=== PATIENT | male | born 1985 | race African-American/Black ===

== ENCOUNTER 2017-12-16 12:27 | Emergency (ER) | payer BC, SELFPAY | END 2017-12-16 13:25 | disposition home or self-care (01) | LOC: ERS 12:27 | DX: K02.9 Dental caries, unspecified; J45.909 Unspecified asthma, uncomplicated; K03.81 Cracked tooth; F17.210 Nicotine dependence, cigarettes, uncomplicated | CPT/HCPCS: 99282 ==

== ENCOUNTER 2018-03-16 21:07 | Emergency (ER) | payer SELFPAY ==
[2018-03-16 21:38] LABS: #Basophils 0.1 thou/uL (0.0-0.2); #Eosinphils 0.2 thou/uL (0.0-0.7); #Lymphocytes 3.1 thou/uL (1.20-3.40); #Neutrophils 7.6 thou/uL (1.40-6.50); %Basophils 0.9 % (0.0-1.0); %Eosinophils 1.5 % (0.0-10.0); %Lymphocytes 26.1 % (21.0-51.0); %Monocytes 7.9 % (0.0-10.0); %Neutrophils 63.6 % (42.0-75.0); Hemoglobin 14.6 g/dL (14.0-18.0); Mean Corpuscular HGB CONC 32.9 g/dL (32.0-36.0); Mean Corpuscular Hemoglobin 31.4 pg (27.0-31.0); Mean Corpuscular Volume 95.6 fL (78.0-98.0); Mean Platelet Volume 7.9 fL (7.4-10.4); Platelet Count 257 thou/uL (130-400); RBC Distribution Width 12.5 % (11.5-14.5); Red Blood Cell (RBC) Count 4.63 mill/uL (4.70-6.10)
--- NOTE | 2018-03-16 21:48 | RAD ---
TWO VIEW CHEST: 03/16/18 COMPARISON: 06/18/15 HISTORY: Shortness of breath for two weeks and cough. FINDINGS: Two views of the chest show normal sized cardiomediastinal silhouette. There is no evidence of consol idation, mass, or pleural effusion. The bones are unremarkable. IMPRESSION: No evidence of acute cardiopulmonary disease. POS: [facility]
[2018-03-16 21:58] LABS: ALT (SGPT) 15 U/L (8-55); AST (SGOT) 20 U/L (5-34); Albumin 3.4 g/dL (3.5-5.0); Alkaline Phosphatase 83 U/L (40-150); Anion Gap 10 mmol/L (10-20); BUN (Urea Nitrogen) 9 mg/dL (8.9-20.6); Bilirubin, Total 0.2 mg/dL (0.2-1.2); Calc. Creatinine Clearance 0 mL/min (70-130); Carbon Dioxide 29 mmol/L (22-29); Chloride 102 mmol/L (98-107); Estimated GFR-MDRD 64; Globulin 2.9 g/dL (2.4-3.5); Glucose 93 mg/dL (70-105); Potassium 3.3 mmol/L (3.5-5.1); Protein, Total 6.3 g/dL (6.0-8.3); Sodium 138 mmol/L (136-145)
[2018-03-16] MEDS ORDERED: predniSONE 20 MG TAB ONE (22:24)
== END 2018-03-16 22:57 | disposition home or self-care (01) ==
LOC: ERS 21:07
DX: J45.901 Unspecified asthma with (acute) exacerbation (principal); Z71.6 Tobacco abuse counseling; F17.210 Nicotine dependence, cigarettes, uncomplicated
CPT/HCPCS: 36415; 71046; 80053; 85025; 93005; 94640; 99406; J7506

== ENCOUNTER 2018-05-05 14:29 | Inpatient (IN) | payer SELFPAY ==
[2018-05-05] MEDS ORDERED: Albuterol Sulfate 2.5 mg/0.5 ml Neb ONE ×2 (14:38)
[2018-05-05] MEDS ORDERED: methylPREDNISolone Sod Succ/PF 125 MG/2 ML VIAL ONE (14:47)
[2018-05-05] MEDS ORDERED: Magnesium 2 GM/NS 0.9% 100 ML 2 GM in Premix Bag 1 BAG IVPB SCH (15:00)
[2018-05-05] MEDS ORDERED: Lorazepam 2 MG/ML VIAL ONE (15:05)
[2018-05-05 15:13] LABS: Hemoglobin 14.9 g/dL (14.0-18.0); Mean Corpuscular HGB CONC 33.8 g/dL (32.0-36.0); Mean Corpuscular Volume 94.8 fL (78.0-98.0); Platelet Count 274 thou/uL (130-400); RBC Distribution Width 12.5 % (11.5-14.5); Red Blood Cell (RBC) Count 4.67 mill/uL (4.70-6.10); White Blood Cell (WBC) Count 8.3 thou/uL (4.8-10.8)
[2018-05-05 15:26] LABS: Eosinophils 6 % (0-10); Lymphocytes 45 % (21-51); MDiff Complete? YES; Monocytes 4 % (0-10); Neutrophil 40 % (42-75); PLT Morphology Comment Appears Adequate; RBC Morphology Normal; Reactive Lymphocytes 4 % (0-10)
--- NOTE | 2018-05-05 15:28 | RAD ---
PORTABLE CHEST: 05/05/18 HISTORY: Dyspnea. The lung small are clear. Heart and mediastinum unremarkable. IMPRESSION: No acute abnormality. POS: [facility]
[2018-05-05 15:32] LABS: Actual Bicarbonate (HCO3a) 23.5 mEq/L (22-28); CO2 Tension 42.2 mmHg (35.0-45.0); O2 Tension (PaO2) 94.7 mmHg (80.0-100.0); pH, Arterial 7.36 (7.35-7.45)
[2018-05-05 15:32] LABS: ALT (SGPT) 15 U/L (8-55); AST (SGOT) 24 U/L (5-34); Albumin 4.2 g/dL (3.5-5.0); Alkaline Phosphatase 95 U/L (40-150); Anion Gap 13 mmol/L (10-20); BUN (Urea Nitrogen) 9 mg/dL (8.9-20.6); Bilirubin, Total 1.4 mg/dL (0.2-1.2); Calc. Creatinine Clearance 0 mL/min (70-130); Calcium 9.7 mg/dL (7.8-10.44); Carbon Dioxide 21 mmol/L (22-29); Chloride 108 mmol/L (98-107); Estimated GFR-MDRD 78; Globulin 2.9 g/dL (2.4-3.5); Glucose 82 mg/dL (70-105); Potassium 4.1 mmol/L (3.5-5.1); Protein, Total 7.1 g/dL (6.0-8.3); Sodium 138 mmol/L (136-145)
[2018-05-05 15:33] LABS: Base Excess (BEa) -1.8 mEq/L (-2.0 to +3.0); Carboxyhemoglobin (COHb) 2.2 gm% (0.0-3.0); Potassium - ABG Lab 3.9 mmol/L (3.70-5.30)
[2018-05-05 15:34] LABS: Analyzer IN Cardio ER; Calcium, Ionized 1.2 mmol/L (1.12-1.30); Puncture Site RR
[2018-05-05] MEDS ORDERED: HYDROcodone/Acetaminophen 5/325 mg Tablet PO PRN (17:21)
[2018-05-05] MEDS ORDERED: Acetaminophen 325 MG TAB PO PRN (17:21)
[2018-05-05] MEDS ORDERED: Guaifenesin DM 100-10/5 ML UDCUP PO PRN (17:21)
[2018-05-05] MEDS ORDERED: Albuterol Sulfate 2.5 mg/3 ml Neb NEB PRN (17:24)
--- NOTE | 2018-05-05 17:54 | HP ---
DATE OF ADMISSION: 05/05/2018 CHIEF COMPLAINT: Shortness of breath. 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 According to him, the patient was in his usual st ate of health at work wherein he developed sudden onset of shortness of breath as he was exposed to a lot of dust and he immediately went to ER for further evaluation and the patient presented to the ER , was acutely short of breath and was immediately started on BiPAP. He had initial ABGs, had a pO2 o f 94 per hour, but this was on BiPAP. The patient received a 2-3 nebulizer treatments with no relief and was given 125 mg of Solu-Medrol. The patient still continued to be very tight in his chest. Bi PAP was continued, but the patient was able to talk and was alert and oriented. He had a previous hi story of similar asthma attacks and is very noncompliant and is a known smoker. The patient is on montelukast at home and also chronic prednisone, but he is also on budesonide inhal er. He has previous similar exacerbations in the past. PAST MEDICAL HISTORY: Chronic asthma. PAST SURGICAL HISTORY: None. SOCIAL HISTORY: The patient is a nonsmoker. No history of alcohol, no history of illicit drug use. 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 ALLERGIES: No known drug allergies. MEDICATIONS: 1. He is on Albuterol inhaler. 2. Budesonide inhaler. 3. Montelukast 10 mg and also on prednisolone 20 mg daily. REVIEW OF SYSTEMS: All 12 systems are reviewed with the patient thoroughly and found to be negative at this time. Systems reviewed are HEENT, CVS, FLAT GRINDER OPERATOR, respiratory, GI, , all systems are reviewed an d found to be negative. The following complete review of systems was negative, unless otherwise ment ioned in the HPI or below: Constitutional: Weight loss or gain, sense of well-being, ability to con duct usual activities, exercise tolerance. Skin/Breast: Rash, itching, changes in hair growth or lo ss, nail changes, breast lumps, tenderness, swelling, nipple discharge. Eyes: Vision, double vision , tearing, blind spots, pain. ENT/Mouth: Headaches (location, time of onset, duration, precipitatin g factors), vertigo, lightheadedness, injury. Vision, double vision, tearing, blind spots, pain, nose bleeding, colds, obstruction, discharge, dental difficulties, gingival bleeding, dentures, neck stif fness, pain, tenderness, masses in thyroid or other areas. Cardiovascular: Precordial pain, substern al distress, palpitations, syncope, dyspnea on exertion, orthopnea, nocturnal paroxysmal dyspnea, abdoulaye ma, cyanosis, hypertension, heart murmurs, varicosities, phlebitis, claudication. Respiratory: Pain , shortness of breath, wheezing, stridor, cough, hemoptysis, fever or night sweats. Gastrointestinal : Poor appetite, dysphagia, indigestion, abdominal pain, heartburn, eructation, nausea, vomiting, he matemesis, jaundice, constipation, or diarrhea, abnormal stools (aldo-colored, tarry, bloody, greasy, foul smelling), flatulence, hemorrhoids, recent changes in bowel habits. Genitourinary: Urgency, f requency, dysuria, nocturia, hematuria, polyuria, oliguria, unusual (or change in) color of urine, st ones, hesitancy, change in size of stream, dribbling, acute retention or incontinence, libido, potenc y. Musculoskeletal: Pain, swelling, redness or heat of muscles or joints, limitation, of motion, mu scular weakness, atrophy, cramps. Neurologic/Psychiatric: Convulsions, paralyses, tremor, incoordin ation, parasthesias, difficulties with memory of speech, sensory or motor disturbances, or muscular c oordination (ataxia, tremor), emotional problems, anxiety, depression, previous psychiatric care, unu sual perceptions, hallucinations. Allergy/Immunologic: Skin rash, anemia, bleeding tendency, polydi psia, polyuria, intolerance to heat or cold. PHYSICAL EXAMINATION: VITAL SIGNS: Blood pressures are 130/88, heart rate is 98, respiratory rate is 24, saturation is 98% on 30% FiO2 on BiPAP. HEENT: Atraumatic, normocephalic. PERRLA. Extraocular muscles were intact. Oral mucosa pink and m oist. CARDIOVASCULAR: S1, S2 normal. No murmurs, rubs or gallops. LUNGS: Bilateral air entry was reduced with increased wheezing and absolutely very low air entry was noted. He has use of accessory muscles of respiration, currently on the BiPAP. ABDOMEN: Soft, nontender. No guarding or rebound tenderness. Bowel sounds normal. MUSCULOSKELETAL: No calf tenderness. No pedal edema. No joint tenderness, no joint swelling. SKIN: No cyanosis, no erythema, no rash, no pallor. NEUROLOGIC: Cranial nerve examination II-XII intact. No focal deficits were noted. LABORATORY DATA: Sodium is 130, potassium 4.1, chloride is 108. BUN is 9, creatinine 1.29. His blood gases: The pH was 7.36, pCO2 of 42.2, pO2 was 94.7 and A gradient was 137. Chest x-ray was also unremarkable. ASSESSMENT AND PLAN: 1. Acute asthma exacerbation. 2. Active smoker. PLAN: 1. Plan is to start the patient on IV Solu-Medrol 80 mg q.6 hours and continue on the BiPAP until cu rrent settings as the patient is pretty stable at this time and is able to talk in sentences. We pete l consult Pulmonary at this time and admit the patient to the C. We will continue the DuoNebs q.4 hours and albuterol nebulizer treatments every 2 hours and we will repeat the ABG as the patient's re spiratory rate is getting worse and is needing longer BiPAP. 2. The patient is an active smoker, counseled the patient to quit smoking. I spent almost 20 minute s with the patient and will do a nicotine patch at this time. 3. Deep venous thrombosis prophylaxis, Lovenox 40 mg subcu daily. I spent 75 minutes with this patient, of this one hour is a critical care time.
[2018-05-05] MEDS ORDERED: methylPREDNISolone Sod Succ/PF 125 MG/2 ML VIAL IVP SCH (18:00)
[2018-05-05 18:24] VITALS: BMI 20.2
[2018-05-05] MEDS: Montelukast Sodium 10 mg Tablet PO SCH (21:51)
[2018-05-05] MEDS: Famotidine 20 MG TAB PO SCH (21:52)
[2018-05-05] MEDS: Nicotine 21 MG PATCH TD SCH (21:52)
[2018-05-06 05:04] LABS: Anion Gap 11 mmol/L (10-20); BUN (Urea Nitrogen) 16 mg/dL (8.9-20.6); Calc. Creatinine Clearance 60 mL/min (70-130); Calcium 9.7 mg/dL (7.8-10.44); Carbon Dioxide 23 mmol/L (22-29); Chloride 106 mmol/L (98-107); Estimated GFR-MDRD 77; Glucose 173 mg/dL (70-105); Sodium 136 mmol/L (136-145)
[2018-05-06 05:44] LABS: Hemoglobin 14.8 g/dL (14.0-18.0); Mean Corpuscular HGB CONC 33.4 g/dL (32.0-36.0); Mean Corpuscular Hemoglobin 31.6 pg (27.0-31.0); Mean Corpuscular Volume 94.8 fL (78.0-98.0); Mean Platelet Volume 8.5 fL (7.4-10.4); Platelet Count 274 thou/uL (130-400); RBC Distribution Width 12.6 % (11.5-14.5); Red Blood Cell (RBC) Count 4.69 mill/uL (4.70-6.10); White Blood Cell (WBC) Count 8.8 thou/uL (4.8-10.8)
[2018-05-06 05:49] LABS: Band 8 % (5-11); Lymphocytes 14 % (21-51); MDiff Complete? YES; Monocytes 3 % (0-10); Neutrophil 75 % (42-75); PLT Morphology Comment Appears Adequate; RBC Morphology Normal
[2018-05-06] MEDS: Enoxaparin Sodium 40 MG/0.4 ML SYRINGE SC SCH (09:16)
[2018-05-06] MEDS: Famotidine 20 MG TAB PO SCH ×2 (09:16→21:48)
--- NOTE | 2018-05-06 14:07 | CON ---
DATE OF CONSULTATION: 05/06/2018 Kana Benítez is a 32-year-old gentleman with no primary care physician presented with asthma exacer bation last night, coughing, wheezing, unresponsive to usual home medication. He has been in our ER here many times. In fact, he was here not long ago with similar symptoms with a diagnosis of pneumonia. He smokes keyon f pack a day since age 18. No history of TB. He said his first asthma attack was when he was 31 yea rs of age. 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 PAST MEDICAL HISTORY: Asthma plus pneumonia. PAST SURGICAL HISTORY: None. CHRONIC MEDICATION. Inhaler. TOBACCO: . ALCOHOL: None. DRUGS: Apparently none. MEDICATIONS: Apparently, he has an albuterol inhaler at home. REVIEW OF SYSTEMS: Otherwise, 10-point negative. PHYSICAL EXAMINATION: VITAL SIGNS: Blood pressure is 105/50, sats on room air, respiration 16, temperature 97, pulse 76. CHEST: Reveal minimal wheezing. CARDIAC: Normal S1, S2, no gallops. ABDOMEN: No masses. LABORATORY DATA: White count is normal. Chemistry profile is normal. Creatinine is 1.30. IMPRESSION: Asthma exacerbation, tobacco abuse, mild azotemia. An alpha-1 antiantitrypsin level is being ordered. Smoking. He needs a scheduled inhaled cortisone inhaler, one was started, Dulera 2 puffs twice a day , p.o. prednisone, may be discharged in the next 24-48 hours. Consultation note, 70 minutes, 50% spent in direct patient care.
--- NOTE | 2018-05-06 14:56 | PDOC.PN ---
- Subjective Encounter Start Date: 05/06/18 Encounter Start Time: 12:00 Luis is seen today, alert and oriented. No other Concern snoted. He is breathing much better now, continue to wheeze and cough. - Objective Resuscitation Status: Resuscitation Status FULL:Full Resuscitation MAR Reviewed: Yes Vital Signs & Weight: Vital Signs (12 hours) Temp Pulse Resp BP Pulse Ox 05/06/18 14:37 76 16 94 L 05/06/18 13:57 97.7 F 85 16 110/66 99 05/06/18 12:08 99 05/06/18 10:53 84 20 05/06/18 08:00 97.9 F 96 16 97 05/06/18 07:00 97.9 F 96 16 105/55 L 98 05/06/18 06:52 75 24 H 100 05/06/18 04:00 97.6 F 90 18 104/52 L 97 Weight Weight 114 lb I&O: 05/05/18 05/06/18 05/07/18 06:59 06:59 06:59 Intake Total 828 Balance 828 Result Diagrams: 05/06/18 04:27 05/06/18 04:27 Radiology Reviewed by me: Yes EKG Reviewed by me: Yes Phys Exam - Physical Examination HEENT: PERRLA, moist MMs Neck: no nodes, no JVD Respiratory: no rales, wheezing present Cardiovascular: RRR, no significant murmur Gastrointestinal: soft, non-tender Musculoskeletal: no edema, pulses present Neurological: non-focal, normal sensation Lymphatic: no nodes Psychiatric: normal affect, A&O x 3 Dx/Plan (1) Acute respiratory failure with hypoxia Code(s): J96.01 - ACUTE RESPIRATORY FAILURE WITH HYPOXIA Status: Resolved Comment: pt on RA, will move him to floors today. (2) Allergic bronchitis with acute exacerbation Code(s): J45.901 - UNSPECIFIED ASTHMA WITH (ACUTE) EXACERBATION Status: Acute Comment: PT likely has allergy to dust, wi=chi is triggering his asthma from work place, advised to apply face mask at work, continue IV steroids and Nebs now, monitor closley if remains stbale can by dischagred in [place]. (3) Smoker, current status unknown Code(s): F17.200 - NICOTINE DEPENDENCE, UNSPECIFIED, UNCOMPLICATED Status: Acute Comment: councilled to quit, also asked pts to quit as he is exposed to passive smoking. - Plan cont current plan of care, plan discussed w/ family, PT/OT, social welfare administrator, respiratory therapy, incentive spirometry, DVT proph w/lovenox * . Review of Systems - Review of Systems Eyes: negative: Pain, Vision Change, Conjunctivae Inflammation, Eyelid Inflammation, Redness, Other ENT: negative: Ear Pain, Ear Discharge, Nose Pain, Nose Discharge, Nose Congestion, Mouth Pain, Mouth Swelling, Throat Pain, Throat Swelling, Other Respiratory: Cough, Shortness of Breath, Wheezing Cardiovascular: negative: chest pain, palpitations, orthopnea, paroxysmal nocturnal dyspnea, edema, light headedness, other Gastrointestinal: negative: Nausea, Vomiting, Abdominal Pain, Diarrhea, Constipation, Melena, Hematochezia, Other Genitourinary: negative: Dysuria, Frequency, Incontinence, Hematuria, Retention , Other Musculoskeletal: negative: Neck Pain, Shoulder Pain, Arm Pain, Back Pain, Hand Pain, Leg Pain, Foot Pain, Other Skin: negative: Rash, Lesions, Dev, Bruising, Other - Medications/Allergies Allergies/Adverse Reactions: Allergies Allergy/AdvReac Type Severity Reaction Status Date / Time No Known Allergies Allergy Unverified 05/26/16 07:38 Medications: Current Medications Acetaminophen (Tylenol) 650 mg PO Q4H PRN PRN Reason: Headache/Fever or Pain Hydrocodone Bitart/Acetaminophen (Powell 5/325) 1 tab PO Q4H PRN PRN Reason: Moderate Pain (4-6) Last Admin: 05/05/18 21:51 Dose: 1 tab Albuterol Sulfate (Ventolin) 2.5 mg NEB Q2H PRN PRN Reason: Wheezing Albuterol/Ipratropium (Duoneb) 3 ml NEB [id number] [facility] Last Admin: 05/06/18 14:37 Dose: 3 ml Enoxaparin Sodium (Lovenox) 40 mg SC 0900 [facility] Last Admin: 05/06/18 09:16 Dose: 40 mg Famotidine (Pepcid) 20 mg PO BID [facility] Last Admin: 05/06/18 09:16 Dose: 20 mg Guaifenesin/Dextromethorphan (Robitussin Dm) 15 ml PO Q4H PRN PRN Reason: Cough Mometasone Furoate/Formoterol Fumar (Dulera 200 Mcg/5 Mcg Inhaler) 2 puff INH BID-RT [facility] Montelukast Sodium (Singulair) 10 mg PO QPM [facility] Last Admin: 05/05/18 21:51 Dose: 10 mg Nicotine (Nicoderm Patch) 21 mg TD Q24HR [facility] Last Admin: 05/05/18 21:52 Dose: 21 mg Prednisone (Prednisone) 40 mg PO [facility]
[2018-05-06] MEDS: Mometasone/Formoterol 120 PUFF INHALER INH SCH (18:33)
[2018-05-06] MEDS: Nicotine 21 MG PATCH TD SCH (21:48)
[2018-05-06] MEDS: Montelukast Sodium 10 mg Tablet PO SCH (21:48)
[2018-05-07] MEDS: Mometasone/Formoterol 120 PUFF INHALER INH SCH (06:27)
[2018-05-07 07:08] VITALS: BP 110/59; TEMP 98.8
[2018-05-07] MEDS ORDERED: predniSONE 20 MG TAB PO SCH (08:00)
--- NOTE | 2018-05-07 08:18 | PRG ---
DATE OF SERVICE: 05/07/2018 This morning, he is better, he is less short of breath, less cough. PHYSICAL EXAMINATION: VITAL SIGNS: Sats are 96 on room air, respiration 16, temperature 98, pulse 80, blood pressure 110/5 9. No shortness of breath, coughing or wheezing. CHEST: Decreased breath sounds, no wheezing. CARDIAC: Normal S1-S2. No gallops. ABDOMEN: Soft. No masses. IMPRESSION: Bronchial asthma exacerbation, improved. PLAN: He can be discharged home on Dulera, a tapering dose of prednisone, a rescue inhaler. I will see as needed.
[2018-05-07] MEDS: Famotidine 20 MG TAB PO SCH (08:39)
[2018-05-07] MEDS: Enoxaparin Sodium 40 MG/0.4 ML SYRINGE SC SCH (08:39)
--- NOTE | 2018-05-08 04:59 | DIS ---
DATE OF ADMISSION: 05/05/2018 DATE OF DISCHARGE: 05/07/2018 PRIMARY CARE PHYSICIAN: None. Patient is instructed to follow up with [facility]. DISCHARGE DIAGNOSES: 1. Asthma exacerbation. 2. History of ongoing tobacco abuse. DISCHARGE MEDICATIONS: 1. Medrol Dosepak. 2. Dulera 100/5 two puffs b.i.d., albuterol inhaler as needed. INHOUSE CONSULTATION: Pulmonary Medicine. HISTORY OF PRESENT ILLNESS: Mr. Benítez is a 32-year-old male with known history of asthma and tobac co abuse who presented to the emergency room with complaints of worsening shortness of breath. He re ported being exposed to a lot of dust. Upon presentation, his initial ABG showed pO2 of 94. He was actually started on BiPAP in the emergency room upon presentation and was given nebulizer and Solu-Me drol. He was admitted with a presumptive diagnosis of acute asthma exacerbation. Pulmonary Medicine was consulted. Please see admission history and physical for further details. HOSPITAL COURSE: The patient was eventually weaned off of BiPAP and was moved out of the CCU to [facility]. He was evaluated by Pulmonary Medicine and eventually, IV steroids were tapered to oral st eroids. This morning on my evaluation, he is back to his baseline and has noticed shortness of breat h on room air, hemodynamically stable and has been cleared by Pulmonary Medicine for discharge. The patient is uninsured and have requested case management to help with his home medication list. M edication assistance was provided for the patient. He was extensively counseled about tobacco abstin ence and primary care physician followup. He is given information to follow up at [facility] for now. He verbalized understanding. PHYSICAL EXAMINATION: VITAL SIGNS: This morning prior to discharge, vital signs, saturating 98% on room air, blood pressur e 110/59. CHEST: Clear to auscultation bilaterally. Rate and rhythm is regular. All questions were answered. Discharge plan was discussed with the patient who verbalized understand ing. DISCHARGE LABS: Alpha 1 antitrypsin 138.
== END 2018-05-07 17:24 | disposition home or self-care (01) | DRG 189 ==
LOC: ERS 14:29 → IMCU/EMU 16:50 → T4-A 05-06 14:03
PROVIDERS: ADMIT Family Medicine; ATTEND Family Medicine
DX: J96.01 Acute respiratory failure with hypoxia (principal); J45.901 Unspecified asthma with (acute) exacerbation; F17.210 Nicotine dependence, cigarettes, uncomplicated; Z87.01 Personal history of pneumonia (recurrent); R79.89 Other specified abnormal findings of blood chemistry
CPT/HCPCS: 36415; 71045; 80048; 80053; 82103; 82805; 83605; 85025; 87040; 90471; 90732; 93005; 94640; 94644; 94660; 94760; G0009; J1650; J2060; J2920; J2930; J3475; J7506; J7611; J7620

== ENCOUNTER 2018-08-14 20:10 | Emergency (ER) | payer BC, SELFPAY | END 2018-08-14 20:57 | disposition home or self-care (01) | LOC: ERS 20:10 | DX: H00.16 Chalazion left eye, unspecified eyelid (principal); J45.909 Unspecified asthma, uncomplicated; F17.210 Nicotine dependence, cigarettes, uncomplicated; Z79.899 Other long term (current) drug therapy | CPT/HCPCS: 99283 ==

== ENCOUNTER → 2019-02-27 | Emergency (ER) | payer BC | LOC: ERS 21:03 | DX: J45.909 Unspecified asthma, uncomplicated (principal) ==

== ENCOUNTER 2019-06-23 03:38 | Inpatient (IN) | payer SELFPAY ==
[2019-06-23] MEDS ORDERED: Ketamine 50 MG/ML (10ML VIAL) ONE (03:45)
[2019-06-23] MEDS ORDERED: Albuterol Sulfate 2.5 mg/3 ml Neb ONE ×2 (03:49)
[2019-06-23 04:01] LABS: Hemoglobin 16.7 g/dL (14.0-18.0); Mean Corpuscular HGB CONC 30.4 g/dL (32.0-36.0); Mean Corpuscular Hemoglobin 31.4 pg (27.0-31.0); Mean Platelet Volume 9.6 fL (7.4-10.4); Platelet Count 208 thou/uL (130-400); RBC Distribution Width 12.5 % (11.5-14.5); Red Blood Cell (RBC) Count 5.31 mill/uL (4.70-6.10); White Blood Cell (WBC) Count 14.9 thou/uL (4.8-10.8)
[2019-06-23 04:20] LABS: ALT (SGPT) 20 U/L (8-55); AST (SGOT) 36 U/L (5-34); Acetaminophen Less than 6.0 mcg/mL (10.0-30.0); Albumin 4.7 g/dL (3.5-5.0); Alcohol Less than 10 mg/dL (Less than 10); Alkaline Phosphatase 109 U/L (40-110); Anion Gap 33 mmol/L (10-20); BUN (Urea Nitrogen) 10 mg/dL (8.9-20.6); Bilirubin, Total 0.6 mg/dL (0.2-1.2); CK (CPK) 378 U/L (30-200); Calc. Creatinine Clearance 0 mL/min (70-130); Calcium 11.5 mg/dL (7.8-10.44); Carbon Dioxide 17 mmol/L (22-29); Chloride 111 mmol/L (98-107); Estimated GFR-MDRD 51; Globulin 2.8 g/dL (2.4-3.5); Glucose 146 mg/dL (70-105); Protein, Total 7.5 g/dL (6.0-8.3); Salicylate Less than 8.0 mg/dL (15.0-30.0); Sodium 155 mmol/L (136-145)
[2019-06-23] MEDS ORDERED: Rocuronium Bromide 10 MG/ML (10ML VIAL) ONE (04:31)
[2019-06-23 04:42] LABS: Eosinophils 7 % (0-10); Lymphocytes 63 % (21-51); MDiff Complete? YES; Monocytes 7 % (0-10); Neutrophil 22 % (42-75); Platelet Clumps SLIGHT; Reactive Lymphocytes 1 % (0-10)
[2019-06-23] MEDS ORDERED: Propofol 1,000 MG/100 ML VIAL IV ONE (04:42)
[2019-06-23 05:07] LABS: Actual Bicarbonate (HCO3a) 9.4 mEq/L (22-28); Analyzer IN Cardio ER; CO2 Tension 33.8 mmHg (35.0-45.0); Calcium, Ionized 1.11 mmol/L (1.12-1.30); Carboxyhemoglobin (COHb) 0.9 gm% (0.0-3.0); Hemoglobin (Hb) 13.4 g/dL (14.0-18.0); O2 Tension (PaO2) 449.9 mmHg (80.0-100.0); Potassium - ABG Lab 3.43 mmol/L (3.70-5.30)
[2019-06-23 05:10] LABS: Medtox Reader # READER 4; THC/Cannabinoid Screen Detected (NotDetected)
[2019-06-23 05:11] LABS: Amphetamine Detected (NotDetected); Barbiturates Screen Not Detected (NotDetected); Benzodiazepine Screen Not Detected (NotDetected); Cocaine Metabolite Screen Not Detected (NotDetected); Medtox Control Line Valid? VALID (VALID); Methadone Not Detected (NotDetected); Methamphetamine Detected (NotDetected); Opiate Screen Not Detected (NotDetected); Oxycodone Screen Not Detected (NotDetected); Phencyclidine (PCP) Not Detected (NotDetected); Tricyclic Screen Not Detected (NotDetected)
[2019-06-23] MEDS ORDERED: Acetaminophen 650 MG Suppository PR PRN (05:15)
[2019-06-23 05:16] LABS: Puncture Site LBA; pH, Arterial 7.06 (7.35-7.45)
[2019-06-23] MEDS ORDERED: Dextrose 5 %-0.45 % NaCl 1,000 ML IV SCH (05:30)
--- NOTE | 2019-06-23 05:32 | PDOC.EVN ---
Event Note - Event Note Event Note: [id number] HP
--- NOTE | 2019-06-23 06:09 | HP ---
CHIEF COMPLAINT: Shortness of breath. HISTORY OF PRESENT ILLNESS: Mr. Benítez is a 33-year-old male with unknown past medical history, was brought to the emergency room by EMS for shortness of breath. EMS reports the patient was sitting on his porch, when he began to have shortness of breath. EMS reports the patient told them he was out of his albuterol for three days and had expiratory wheezing? The patient was very combative upon arrival to the emergency room and need to be sedated. As per ER physicians, the patient started having more respiratory distress, was using his accessory muscles, the patient was intubated and mechanically ventilated. No further history can be obtained at this time. Workup in the emergency room, patient's labs; the patient was found to be hypernatremic with a sodium of 155, potassium is 6.0, creatinine elevated at 1.85. Anion gap is 33. Glucose 146. Total CK is 378. WBC count is 14.9, hemoglobin is 16.7, and platelets 208. Urine drug screen is positive for THC and cannabinoids, positive for methamphetamine, positive for amphetamine. PAST MEDICAL HISTORY: Unknown. ALLERGIES: UNKNOWN. SOCIAL HISTORY: Unknown. HOME MEDICATIONS: Unknown. FAMILY HISTORY: Unknown. REVIEW OF SYSTEMS: Cannot be obtained. The patient is intubated, mechanically ventilated, and sedated. PHYSICAL EXAMINATION: GENERAL: The patient is intubated, mechanically ventilated, and sedated. VITAL SIGNS: Blood pressure 115/59, temperature 97.8, heart rate is 110, respiratory rate is 15 on the vent, and oxygen saturation is 100% on the ventilator. HEAD AND NECK: Normocephalic. Neck is supple. CHEST: Fair bilateral air entry. HEART: S1, S2. Regular, tachycardic. ABDOMEN: Soft. Bowel sounds present. NEURO: Intubated, sedated. PSYCH: Intubated, sedated, unable to assess. EXTREMITIES: No clubbing or cyanosis. LABORATORY DATA: As mentioned above in the history of present illness. ASSESSMENT: 1. Acute respiratory failure. 2. Metabolic/toxic encephalopathy. 3. Polysubstance abuse/intoxication. 4. Acute renal failure. 5. Leukocytosis. 6. Acute hypernatremia. 7. Hyperkalemia. 8. Dehydration. 9. Elevated anion gap. PLAN: 1. Admit to the ICU. 2. Continue full ventilator support. 3. IV fluid hydration. 4. Monitor kidney function and urine output. 5. Monitor and correct electrolytes. 6. Consult Pulmonary in a.m. for vent management and critical care management. 7. Sedation analgesia. 8. DVT prophylaxis. Low molecular weight heparin. 9. GI prophylaxis. 10. Expected length of stay, 3 midnights or more. Job ID: [id number]
[2019-06-23] MEDS ORDERED: Lorazepam 2 MG/ML VIAL SLOW IVP PRN (06:10)
[2019-06-23] MEDS ORDERED: Morphine 2 MG/ML SYRINGE SLOW IVP PRN (06:10)
[2019-06-23] MEDS ORDERED: Propofol BOLUS 1,000 MG/100 ML VIAL IV PRN (06:10)
[2019-06-23] MEDS ORDERED: fentaNYL Citrate/PF 2,000 MCG in Sodium Chloride 0.9% 60 ML IV SCH (06:10)
[2019-06-23] MEDS ORDERED: DISCONTINUE PREVIOUS NARCOTIC PAIN MEDICATIONS AND BENZODIAZEPINES FS SCH (06:10)
[2019-06-23] MEDS ORDERED: Propofol 1,000 MG/100 ML VIAL IV PRN (06:10)
[2019-06-23] MEDS ORDERED: Fentanyl BOLUS 250 ML IVPB PRN (06:10)
[2019-06-23 06:29] LABS: Hemoglobin 14.1 g/dL (14.0-18.0); Mean Corpuscular HGB CONC 32.3 g/dL (32.0-36.0); Mean Corpuscular Hemoglobin 31.6 pg (27.0-31.0); Mean Corpuscular Volume 97.9 fL (78.0-98.0); Mean Platelet Volume 8.3 fL (7.4-10.4); Platelet Count 294 thou/uL (130-400); RBC Distribution Width 12.3 % (11.5-14.5); Red Blood Cell (RBC) Count 4.46 mill/uL (4.70-6.10); White Blood Cell (WBC) Count 16.1 thou/uL (4.8-10.8)
[2019-06-23 06:36] LABS: Band 7 % (5-11); Eosinophils 3 % (0-10); Lymphocytes 13 % (21-51); MDiff Complete? YES; Monocytes 2 % (0-10); Neutrophil 75 % (42-75)
[2019-06-23 06:40] LABS: Anion Gap 19 mmol/L (10-20); BUN (Urea Nitrogen) 11 mg/dL (8.9-20.6); Calc. Creatinine Clearance 0 mL/min (70-130); Carbon Dioxide 13 mmol/L (22-29); Chloride 111 mmol/L (98-107); Potassium 3.4 mmol/L (3.5-5.1); Sodium 140 mmol/L (136-145)
[2019-06-23 06:41] LABS: ALT (SGPT) 24 U/L (8-55); AST (SGOT) 56 U/L (5-34); Albumin 3.5 g/dL (3.5-5.0); Alkaline Phosphatase 99 U/L (40-110); Bilirubin, Total 0.3 mg/dL (0.2-1.2); Calcium 7.6 mg/dL (7.8-10.44); Estimated GFR-MDRD 62; Globulin 2.3 g/dL (2.4-3.5); Glucose 137 mg/dL (70-105); Protein, Total 5.8 g/dL (6.0-8.3)
[2019-06-23 06:46] VITALS: BMI 18.6
[2019-06-23 06:49] LABS: Actual Bicarbonate (HCO3a) 16.6 mEq/L (22-28); Base Excess (BEa) -9.4 mEq/L (-2.0 to +3.0); CO2 Tension 36.6 mmHg (35.0-45.0); Calcium, Ionized 1.12 mmol/L (1.12-1.30); Carboxyhemoglobin (COHb) 1.7 gm% (0.0-3.0); Hemoglobin (Hb) 14.9 g/dL (14.0-18.0); O2 Tension (PaO2) 72.4 mmHg (80.0-100.0); Potassium - ABG Lab 3.39 mmol/L (3.70-5.30); pH, Arterial 7.27 (7.35-7.45)
[2019-06-23] MEDS ORDERED: Bacteriostatic Water 30 ML VIAL FS PRN (06:50)
[2019-06-23 07:02] LABS: Puncture Site RRA
--- NOTE | 2019-06-23 07:42 | RAD ---
Chest one view HISTORY: Intubation. COMPARISON: Earlier exam on the same date. FINDINGS: Cardiac silhouette and pulmonary vasculature are unremarkable. Tip of endotracheal catheter overlies the trachea at the level of the clavicular heads. Proximal port of the nasogastric tube is at the level of the GE junction. Subtle hazy parenchymal opacity now projects over each upper lobe. Mediastinum is midline. No evidenc e of pneumothorax. IMPRESSION: Endotracheal catheter tip at the thoracic inlet. Nasogastric tube should probably be advanced 5-10 cm for better positioning. Developing subtle hazy parenchymal infiltrate within each upper lobe.
--- NOTE | 2019-06-23 07:50 | RAD ---
Chest one view HISTORY: Dyspnea. COMPARISON: 05 May 2018. FINDINGS: Cardiac silhouette and pulmonary vasculature are unremarkable. Lungs remain hyperinflated. Mediastinum is midline. No confluent airspace consolidation or evidence of thorax. telemetry monitor leads overlie the chest. IMPRESSION: Pulmonary hyperinflation. No active cardiopulmonary abnormalities are otherwise demonstra delma.
[2019-06-23] MEDS ORDERED: Ondansetron PF 4 MG/2 ML Vial ONE (08:27)
[2019-06-23] MEDS: Enoxaparin Sodium 30 MG/0.3 ML SYRINGE SC SCH (09:10)
[2019-06-23] MEDS: Famotidine/PF 20 mg/2ml Vial SLOW IVP SCH ×2 (09:10→21:20)
[2019-06-23] MEDS ORDERED: Ondansetron PF 4 MG/2 ML Vial SLOW IVP PRN (09:47)
--- NOTE | 2019-06-23 11:23 | CON ---
DATE OF CONSULTATION: 06/23/2019 SERVICE: Pulmonary Medicine. REASON FOR CONSULTATION: ICU patient. HISTORY OF PRESENT ILLNESS: The patient is a 33-year-old male with past medical history significant for asthma. He was in his usual state of health when he started having increasing difficulty with breathing. He presented to the emergency department and subsequently required intubation. He has been out of his albuterol for 3 days. He does not take any long-acting medications because of cost-related issues. Prior to this event occurring, he did not have any fevers, chills, cough, sputum production, nausea, or vomiting. He denies any sick contacts at this point. He ended up getting intubated. He had an obstructive lung profile immediately following intubation, which has slowly improved overnight. At this point, he is at the point where he can be safely extubated. PAST MEDICAL HISTORY: Asthma. PAST SURGICAL HISTORY: None. SOCIAL HISTORY: He is a lifelong nonsmoker. He denies any alcohol or illicit drugs. He is and has a child. He has no exposure to chemicals, dust, asbestos, or tuberculosis. ALLERGIES: NO KNOWN DRUG ALLERGIES. MEDICATIONS: List of his inpatient medications was reviewed. Multiple updates were made at this time. REVIEW OF SYSTEMS: General, head, ears, eyes, nose, throat, cardiovascular, respiratory, GI, , musculoskeletal, neurologic, and skin is negative except as mentioned in the HPI. PHYSICAL EXAMINATION: VITAL SIGNS: Afebrile; pulse 86; blood pressure 100/61; respirations 15; and saturation 100%, currently on 21% FiO2 and a PEEP of 5. GENERAL: The patient is intubated. He is off sedation currently and so he has a little bit of agitation. HEENT: Normocephalic and atraumatic. Sclerae are white. Conjunctivae pink. Oral mucosa is moist without lesions. LUNGS: Decent air entry. There is prolonged expiratory phase, but at this point I do not hear any wheezing or rhonchi. HEART: Normal rate and regular. ABDOMEN: Soft, nontender, and nondistended. Bowel sounds are positive. MUSCULOSKELETAL: No cyanosis or clubbing. No pitting in the bilateral lower extremities. NEUROLOGIC: Grossly nonfocal. LABORATORY DATA: WBC 16.1 and up trending, hemoglobin 14.1, and platelets 294,000. Lymphocyte count is 13% on top of 75% neutrophils. A pH 7.27, pCO2 of 36, pO2 of 72 while on 21% FiO2. Potassium 3.4. Creatinine 1.56 and gently downtrending. Liver function studies are otherwise unremarkable. CK 378. Troponin and alpha-1 antitrypsin levels were previously unremarkable. Urine drug screen is positive for amphetamines, benzodiazepine, and cannabinoids. IMAGING STUDIES: Chest x-ray demonstrates bilateral hazy infiltrates in the upper lobes. There is an endotracheal tube roughly 5 to 6 cm above the level of the jaxson. Diaphragm flattened slightly, consistent with hyperexpansion. No significant effusions or overt consolidating changes are present. ASSESSMENT: 1. Acute hypoxic respiratory failure, resolved. 2. Status asthmaticus, improving. 3. Medical noncompliance. DISCUSSION AND PLAN: The patient will be placed on a spontaneous breathing trial. If he meets criteria, extubation will be considered. I will give him a dose of potassium. We will deescalate his antibiotics and steroids over to p.o. medications. If he meets criteria for extubation, he will likely be stable for transition out of the ICU to the medical unit. Pulmonary/Critical Care will continue to follow along, though Dr. Panda has established a relationship with Mr. Benítez and will assume coverage in the morning. We will need to focus on getting this patient good medications in the outpatient setting. CRITICAL CARE TIME: 30 minutes. Job ID: [id number]
[2019-06-23] MEDS ORDERED: methylPREDNISolone Sod Succ 40 MG VIAL IVP SCH (12:00)
[2019-06-23] MEDS: Nicotine 14 MG PATCH TD SCH (12:14)
--- NOTE | 2019-06-23 12:21 | PRG ---
DATE OF SERVICE: 06/23/2019 SUBJECTIVE: The patient is seen and examined at the bedside. He is intubated, but he is able to communicate with me. He is not in any pain. He is orally intubated. OBJECTIVE: VITAL SIGNS: Blood pressure is 95/60, pulse is 79, respiratory rate is 20, and O2 saturation is 100% on a ventilator. HEENT: His pupils are responding to light properly. Sclerae are nonicteric. Conjunctivae, pinkish. LUNGS: Breath sounds somewhat diminished at both bases. No wheezing. No rales. HEART: S1 and S2 normal. No S3. No S4. ABDOMEN: Soft, nontender, nondistended. Bowel sounds are present. EXTREMITIES: No clubbing, cyanosis, or edema. NEUROLOGICAL: He follows my commands. He moves his all 4 extremities. LABORATORY DATA: Labs showed white count of 16.1, hemoglobin of 14.1, hematocrit of 43.6, platelet count is 294,000. ABGs showed pH of 7.27, pO2 of 72.4, pCO2 of 36.6, base excess -9.4. Sodium of 140, potassium of 3.4, chloride of 111, CO2 of 13, BUN of 11, creatinine of 1.56, calcium of 7.6, globulin of 2.3, albumin of 3.5, total protein of 5.8. Drug urine screen positive for amphetamines, methamphetamines, and cannabinoids. IMPRESSION: 1. Status asthmaticus. 2. Acute respiratory failure. 3. Metabolic/toxic encephalopathy secondary to most likely substance abuse. 4. Polysubstance abuse/intoxication. 5. Acute renal failure, improving with intravenous fluids. 6. Dyselectrolytemia. 7. Dehydration. 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 Continue IV fluids. He is started on his own prednisone per Dr. Grace's recommendation. He will continue DuoNeb's, and we will talk about his illicit drug use when he is extubated. We will continue his close monitoring. Continue with a close lab work. Replace potassium and follow up on his kidney function. We will obtain the ultrasound on his kidneys, and we will start him on patch 14 mg daily since he smokes approximately 1 pack per day. Job ID: [id number]
--- NOTE | 2019-06-23 14:48 | ULT ---
Renal sonogram HISTORY: Renal failure. FINDINGS: Right kidney is 9.2 cm length and the left is 9.4 cm. Each has a normal sonographic appeara nce with good color and spectral Doppler flow each has a normal sonographic appearance. No evidence of mass, stone, or hydronephrosis. Urinary bladder is well distended. Homogeneous speckled echogenic material is present throughout the urinary bladder lumen. IMPRESSION: No evidence of urinary tract obstruction. Normal appearance of the kidneys. Echogenic process (debris?) Throughout the urinary bladder. Recent instrumentation and administration of fluid? Urinary tract infection?
[2019-06-23] MEDS ORDERED: predniSONE 20 MG TAB PO SCH (21:00)
[2019-06-24 06:30] LABS: Hemoglobin 14.3 g/dL (14.0-18.0); Mean Corpuscular Hemoglobin 31.6 pg (27.0-31.0); Mean Corpuscular Volume 95.7 fL (78.0-98.0); Mean Platelet Volume 7.9 fL (7.4-10.4); Platelet Count 319 thou/uL (130-400); RBC Distribution Width 12.4 % (11.5-14.5); Red Blood Cell (RBC) Count 4.53 mill/uL (4.70-6.10); White Blood Cell (WBC) Count 13.7 thou/uL (4.8-10.8)
[2019-06-24 07:03] LABS: ALT (SGPT) 23 U/L (8-55); AST (SGOT) 45 U/L (5-34); Albumin 3.6 g/dL (3.5-5.0); Alkaline Phosphatase 76 U/L (40-110); Anion Gap 11 mmol/L (10-20); BUN (Urea Nitrogen) 11 mg/dL (8.9-20.6); Bilirubin, Total 0.6 mg/dL (0.2-1.2); Calc. Creatinine Clearance 49 mL/min (70-130); Carbon Dioxide 23 mmol/L (22-29); Chloride 112 mmol/L (98-107); Estimated GFR-MDRD 62; Globulin 2.4 g/dL (2.4-3.5); Glucose 114 mg/dL (70-105); Potassium 4.8 mmol/L (3.5-5.1); Sodium 141 mmol/L (136-145)
[2019-06-24 07:20] LABS: Band 1 % (5-11); Lymphocytes 11 % (21-51); MDiff Complete? YES; Monocytes 1 % (0-10); Neutrophil 86 % (42-75); RBC Morphology Normal; Reactive Lymphocytes 1 % (0-10)
[2019-06-24] MEDS ORDERED: predniSONE 20 MG TAB PO SCH (08:00)
[2019-06-24] MEDS: Enoxaparin Sodium 30 MG/0.3 ML SYRINGE SC SCH (08:32)
--- NOTE | 2019-06-24 08:48 | PRG ---
DATE OF SERVICE: 06/24/2019 SUBJECTIVE: Kana Benítez, this morning, is awake, alert, and responsive. He was extubated yesterday. OBJECTIVE: VITAL SIGNS: Temperature 98, pulse 80, respiratory rate 18, saturations are 98% on room air, and blood pressure 106/60. CHEST: No wheezing. CARDIAC: Normal S1 and S2. No gallops. ABDOMEN: No masses. ASSESSMENT: Chronic obstructive pulmonary disease asthma exacerbation. PLAN: He needs to be on inhaled steroids indefinitely. Can be transferred out of the ICU. Taper steroids over 2 weeks. Follow with primary care physician. Job ID: [id number]
[2019-06-24] MEDS ORDERED: Famotidine 20 MG TAB PO SCH (09:00)
[2019-06-24] MEDS: Nicotine 14 MG PATCH TD SCH (12:05)
[2019-06-24 12:08] VITALS: BP 112/67; TEMP 98
--- NOTE | 2019-06-24 13:54 | PRG ---
DATE OF SERVICE: 06/24/2019 SUBJECTIVE: Patient is seen and examined at bedside. He is extubated. He is feeling significantly better. OBJECTIVE: VITAL SIGNS: Blood pressure is 112/67, pulse is 87, respiratory rate is 16, temperature 98.0, O2 saturation is 97% on room air. HEENT: His head is atraumatic and normocephalic. Eyes are PERRLA. Sclerae are nonicteric. Oral mucosa is moist. NECK: Supple. LUNGS: Clear. HEART: S1, S2 normal. No S3. No S4. No murmur. ABDOMEN: Soft, nontender. Bowel sounds are present, no organomegaly. EXTREMITIES: No clubbing, cyanosis, or edema. NEUROLOGIC: He is alert and oriented x4. There is no any sensory or motor deficits. LABORATORY DATA: Labs showed white count of 13.7, hemoglobin of 14.3, hematocrit 43.4, platelet count is 319. Sodium of 141, potassium 4.8, chloride 112, CO2 of 23, BUN 11, creatinine 1.58, calcium 9.0, AST 45, ALT 23, alkaline phosphatase 76. IMPRESSION: 1. Status asthmaticus, resolved. 2. Acute respiratory failure, resolved, status post mechanical ventilation. 3. Metabolic/toxic encephalopathy secondary to most likely substance abuse. 4. Polysubstance abuse. 5. Intoxication. 6. Acute renal failure, improved with intravenous fluids. Renal ultrasound showed some distended urinary bladder with homogeneous speckled echogenic material throughout the urinary bladder lumen. There is no evidence of urinary tract obstruction and there are normal-appearing kidneys. PLAN: The patient is switched to oral prednisone and continue on DuoNebs every 6 hours along with inhaled steroids, Dulera 2 puffs twice a day and he will be transitioned to telemetry floor and most likely he can go home in the next 24 hours. Job ID: [id number]
[2019-06-24] MEDS ORDERED: Mometasone/Formoterol 120 PUFF INHALER INH SCH (18:30)
--- NOTE | 2019-06-25 22:27 | PQF ---
[employer] Winform Viewer BRANDY ROTHMAN ZBIGNIEW A MD [id number] CLINICAL DOCUMENTATION CLARIFICATION FORM: POST DISCHARGE Addendum to original discharge summary date: ____ Late entry note date: __ DATE: 06/25/19 ATTN: Bernabe Ibarra Please exercise your independent, professional judgment in responding to the clarification form. Clinical indicators are provided on the bottom of this form for your review Can you please further specify the etiology of Acute hypoxic respiratory failure based on the clinical indicators below? Please check appropriate box(s): [ x ] Polysubstance abuse (Cannabinoids, methamphetamine, amphetamine) [ ] Status asthmaticus [ ] Polysubstance intoxication (Cannabinoids, methamphetamine, amphetamine) [ ] Acute hypoxic respiratory failure unknown etiology [ ] Other diagnosis please specify [ ] Unable to determine In addition, please specify: Present on Admission (POA): [ x] Yes [ ] No [ ] Unable to determine For continuity of documentation, please document condition throughout progress notes and discharge summary. Thank You. CLINICAL INDICATORS - SIGNS / SYMPTOMS / LABS H&P p1 06/23 Dr. Benjamin - As per ER physician, the patient started having respiratory distress, was using his accessory muscles, the patient was intubated and mechanically ventilated H&P p1 06/23 Dr. Benjamin - The patient was very combative upon arrival to the emergency room and need to be sedated H&P p1 06/23 Dr. Benjamin - Urine drug screen is positive for THC and cannabinoids, positive for methamphetamine positive for amphetamine H&P p2 06/23 Dr. Benjamin - Polysubstance abuse/intoxication PN p1 06/24 Dr. Olivia - Acute Respiratory failure, resolved, status post mechanical ventilation PN p1 06/24 Dr. Olivia - Metabolic/ toxic encephalopathy secondary to most likely substance abuse PN p1 06/24 Dr. Olivia - polysubstance abuse PN p1 06/24 Dr. Olivia - status asthmaticus, resolved RISK FACTORS Asthma-H&P 06/23 Dr. Benjamin COPD-PN 06/24 Dr. Panda Polysubstance abuse- H&P p1 06/23 Dr. Benjamin TREATMENTS: Consult Dr. Grace Pulmonary Consult H&P 06/23 Dr. Benjamin Intubated and mechanically ventilated NOV 18 Ativan IV NOV 18 Methylprednisolone IV NOV 18- IV Fluids (This form is maintained as a part of the permanent medical record) 2014 [employer]. All Rights Reserved Julio de la [email or web address] [not provided] MTDD
== END 2019-06-24 16:05 | disposition home or self-care (01) | DRG 917 ==
LOC: ERS 03:38 → CCU 06:06
PROVIDERS: ADMIT Internal Medicine; ATTEND Internal Medicine
PROC: 5A1935Z Respiratory Ventilation, Less than 24 Consecutive Hours (ICD-10-PCS; principal; 2019-06-23)
PROC: 0BH17EZ Insertion of Endotracheal Airway into Trachea, Via Natural or Artificial Opening (ICD-10-PCS; 2019-06-23)
DX: T43.621A Poisoning by amphetamines, accidental (unintentional), initial encounter (principal); J96.01 Acute respiratory failure with hypoxia; G92 Toxic encephalopathy; J45.902 Unspecified asthma with status asthmaticus; N17.9 Acute kidney failure, unspecified; E87.0 Hyperosmolality and hypernatremia; T40.7X1A Poisoning by cannabis (derivatives), accidental (unintentional), initial encounter; E86.0 Dehydration; E87.5 Hyperkalemia; J44.9 Chronic obstructive pulmonary disease, unspecified; F12.129 Cannabis abuse with intoxication, unspecified; F12.188 Cannabis abuse with other cannabis-induced disorder; F15.129 Other stimulant abuse with intoxication, unspecified; F17.210 Nicotine dependence, cigarettes, uncomplicated; F15.188 Other stimulant abuse with other stimulant-induced disorder; Z91.14 Patient's other noncompliance with medication regimen
CPT/HCPCS: 31500; 36415; 51702; 71045; 76770; 80053; 80306; 80307; 82550; 82805; 84484; 85007; 85025; 85027; 93005; 94002; 94640; 94760; 96360; 96365; 96372; J1650; J2405; J2704; J7512; J7611; J7620; S0028

== ENCOUNTER 2019-12-28 01:40 | Inpatient (IN) | payer SELFPAY ==
[2019-12-28] MEDS ORDERED: Magnesium 2 GM/50 ML BAG (IN WATER) ONE (01:44)
[2019-12-28] MEDS ORDERED: EPINEPHrine 1 MG/ML AMP ONE (01:45)
[2019-12-28] MEDS ORDERED: predniSONE 20 MG TAB ONE (02:22)
[2019-12-28 03:02] LABS: Amphetamine Not Detected (NotDetected); Barbiturates Screen Not Detected (NotDetected); Benzodiazepine Screen Not Detected (NotDetected); Cocaine Metabolite Screen Not Detected (NotDetected); Medtox Control Line Valid? VALID (VALID); Medtox Reader # READER 1; Methadone Not Detected (NotDetected); Methamphetamine Not Detected (NotDetected); Opiate Screen Not Detected (NotDetected); Oxycodone Screen Not Detected (NotDetected); Phencyclidine (PCP) Not Detected (NotDetected); THC/Cannabinoid Screen Detected (NotDetected); Tricyclic Screen Not Detected (NotDetected)
[2019-12-28 03:05] LABS: #Basophils 0.1 thou/uL (0.0-0.2); #Eosinphils 1.1 thou/uL (0.0-0.7); #Monocytes 0.5 thou/uL (0.11-0.59); #Neutrophils 5.2 thou/uL (1.40-6.50); %Basophils 1.1 % (0.0-1.0); %Lymphocytes 30.4 % (21.0-51.0); %Monocytes 5.3 % (0.0-10.0); %Neutrophils 52.2 % (42.0-75.0); Hemoglobin 15.3 g/dL (14.0-18.0); Mean Corpuscular HGB CONC 32.5 g/dL (32.0-36.0); Mean Corpuscular Hemoglobin 32.2 pg (27.0-31.0); Mean Corpuscular Volume 98.9 fL (78.0-98.0); Platelet Count 167 thou/uL (130-400); RBC Distribution Width 12.3 % (11.5-14.5); Red Blood Cell (RBC) Count 4.75 mill/uL (4.70-6.10); White Blood Cell (WBC) Count 9.9 thou/uL (4.8-10.8)
--- NOTE | 2019-12-28 03:16 | PDOC.FPRHP ---
- History of Present Illness Chief Complaint: SOB History of Present Illness: 34yo male with pmh of severe asthma presents with SOB worse over the last 2 days. He reports daily symptoms of asthma. Has been intubated twice for exacerbations and is hospitalized frequently, last intubated on 06/23/19. Currently uninsured with no PCP, only has albuterol inhaler that he uses several times a day. Usually this provides some relief but the last 2 days it hasn't. Endorses chest tightness, wheezing. When he first arrived he was unable to speak more than 1-2 words at a time, now reports good relief and able to speak in full sentences. Denies fever, chills, cough, sick contacts, COVID exposure. Reports being isolated at home. Smokes 1ppd. ED Course: Prednisone 60mg, Combivent, Mg, 1L NS, Epi 0.3 - Allergies/Adverse Reactions Allergies Allergy/AdvReac Type Severity Reaction Status Date / Time onion Allergy Verified 06/23/19 12:00 - Home Medications Medication Instructions Recorded Confirmed Type Albuterol Sulfate [Proair HFA] 2 puff INH Q4HR PRN #1 inh 06/24/19 12/28/19 Rx - History PMHx: Uncontrolled asthma PSHx: Denies FHx: Sister 4mo ago of CVA at age 38 Social: Smokes 1ppd since age 16. Denies alcohol or drug use. - Review of Systems General: denies: fever/chills, fatigue ENT: denies: nasal congestion, rhinorrhea Respiratory: reports: shortness of breath. denies: cough, congestion Cardiovascular: reports: other (chest tightness). denies: palpitation Gastrointestinal: denies: nausea, vomiting, abdominal pain Genitourinary: denies: incontinence, dysuria Skin: denies: rashes, lesions Musculoskeletal: denies: pain Neurological: denies: weakness, other (tingling) - Vital signs BP: 109/70 HR: 82 RR: 18 Tmax: 97.8 Pox: 98% on 3L Wt: 54.43kg - Physical Exam Constitutional: NAD, awake, alert and oriented, well developed -Constitutional: Wearing NC at 3L HEENT: normocephalic and atraumatic, conjunctiva clear, grossly normal hearing, MMM Neck: supple, trachea midline Heart: RRR, no murmurs/rubs/gallops Lungs: other (Diffuse inspiratory and expiratory wheezing. Able to speak in full sentences. No retractions) Abdomen: soft, non-tender Musculoskeletal: normal structure, normal tone Neurological: no focal deficit Skin: no rash/lesions, other (tattoos present) Heme/Lymphatic: no unusual bruising or bleeding Psychiatric: normal mood and affect, good judgment and insight, intact recent and remote memory FMR H&P: Results - Labs Result Diagrams: 12/28/19 02:56 12/28/19 07:33 Lab results: WBC 9.9 thou/uL (4.8-10.8) 12/28/19 02:56 Hgb 15.3 g/dL (14.0-18.0) 12/28/19 02:56 Hct 47.0 % (42.0-52.0) 12/28/19 02:56 MCV 98.9 fL (78.0-98.0) H 12/28/19 02:56 Plt Count 167 thou/uL (130-400) 12/28/19 02:56 Neutrophils % 52.2 % (42.0-75.0) 12/28/19 02:56 - Radiology Interpretation Chest x-ray Status: image reviewed by me Additional comment: Hyperexpansion, flattened diaphragm. No obvious infiltrates. FMR H&P: A/P - Plan 34yo male with pmh of severe asthma admitted for acute hypoxic respiratory failure 2/2 asthma exacerbation Acute hypoxic respiratory failure 2/2 asthma exacerbation - Initial documented SpO2 91% on RA, reportedly lower prior. This was after ann marie - Received Prednisone, Mg, Epi 0.3 in ED. Continue Albuterol q4h RAYMOND with q4h PRN. Continue prednisone daily for 5 days. Monitor resp status closely. Keep SpO2 >92%. - Admit to medical. Regular diet. SASHA - Cr 1.43 - s/p 1L NS in ED, Oral hydration. Check BMP in AM Tobacco Abuse - Encourage cessation Hx of Drug Abuse - UDS positive for cannabis only this admission Severe Uncontrolled Asthma - CM consulted for inhaler acquisition outpt. Needs to establish with PCP - Manage as above Code Status: FULL DVT ppx: Lovenox PCP: CC- None Addendum - Attending - Attending Attestation Date/Time: 12/28/19 1023 I personally evaluated the patient and discussed the management with Dr. Taylor. I agree with the History, Examination, Assessment and Plan documented above with any addition or exceptions noted below. Patient here with hypoxia from untreated asthma. Finances hinder control. He is improved. Starting on asthma regimen and CM consult, wean O2 as tolerated. Elevated eosinophils, might be candidate for immuno therapy to treat asthma.
[2019-12-28] MEDS ORDERED: Ondansetron ODT 4 MG TAB PO PRN (03:22)
[2019-12-28] MEDS ORDERED: Ondansetron PF 4 MG/2 ML Vial IVP PRN (03:22)
[2019-12-28] MEDS ORDERED: Acetaminophen 325 MG TAB PO PRN (03:22)
[2019-12-28] MEDS ORDERED: Calcium Carbonate 500 MG ChewTAB PO PRN (03:22)
[2019-12-28] MEDS ORDERED: Albuterol Sulfate 2.5 mg/3 ml Neb NEB PRN (03:26)
[2019-12-28 03:27] LABS: ALT (SGPT) 17 U/L (8-55); AST (SGOT) 22 U/L (5-34); Albumin 3.2 g/dL (3.5-5.0); Alkaline Phosphatase 76 U/L (40-110); Anion Gap 13 mmol/L (10-20); BUN (Urea Nitrogen) 11 mg/dL (8.9-20.6); Bilirubin, Total 0.3 mg/dL (0.2-1.2); Calc. Creatinine Clearance 0 mL/min (70-130); Calcium 7.9 mg/dL (7.8-10.44); Carbon Dioxide 22 mmol/L (22-29); Chloride 109 mmol/L (98-107); Estimated GFR-MDRD 69; Globulin 2.2 g/dL (2.4-3.5); Glucose 135 mg/dL (70-105); Protein, Total 5.4 g/dL (6.0-8.3); Sodium 140 mmol/L (136-145)
[2019-12-28 03:40] VITALS: BMI 21.2
[2019-12-28] MEDS: Ipratropium/Albuterol Sulfate 4 GM AER IH SCH ×2 (03:48→06:41)
[2019-12-28] MEDS ORDERED: Mometasone 200 MCG/Formoterol 5 MCG 120 PUFF INHALER INH SCH (06:30)
[2019-12-28] MEDS: Albuterol Sulfate 2.5 mg/3 ml Neb NEB SCH ×2 (06:38→10:15)
[2019-12-28 07:43] VITALS: BP 97/63; TEMP 97.8
[2019-12-28] MEDS ORDERED: predniSONE 20 MG TAB PO SCH (08:00)
[2019-12-28 08:12] LABS: Anion Gap 11 mmol/L (10-20); BUN (Urea Nitrogen) 9 mg/dL (8.9-20.6); Calc. Creatinine Clearance 62 mL/min (70-130); Calcium 8.6 mg/dL (7.8-10.44); Carbon Dioxide 24 mmol/L (22-29); Chloride 107 mmol/L (98-107); Estimated GFR-MDRD 77; Glucose 116 mg/dL (70-105); Potassium 4.1 mmol/L (3.5-5.1); Sodium 138 mmol/L (136-145)
[2019-12-28] MEDS ORDERED: Enoxaparin Sodium 40 MG/0.4 ML SYRINGE SC SCH (09:00)
--- NOTE | 2019-12-28 09:21 | RAD ---
CHEST ONE VIEW: History: Dyspnea. FINDINGS: Heart size is normal. Bronchovascular markings are somewhat prominent bilaterally without confluent p neumonia, overt edema, or pleural effusion. IMPRESSION: Overall stable increased bronchovascular markings bilaterally without confluent pneumonia. POS: [facility]
--- NOTE | 2019-12-29 06:14 | DIS ---
DATE OF ADMISSION: 12/28/2019 DATE OF DISCHARGE: 12/28/2019 The patient left AMA. RESIDENT: Wilfredo Dyson MD ADMITTING ATTENDING: Diaz Santoyo MD DISCHARGE ATTENDING: Diaz Santoyo MD CONSULTS: None. PROCEDURE: Chest x-ray on 12/28/2019, demonstrating overall stable increased bronchovascular markings bilaterally without confluent pneumonia. PRIMARY DIAGNOSES: 1. Acute hypoxic respiratory failure secondary to asthma exacerbation. 2. Acute kidney injury. SECONDARY DIAGNOSES: 1. Tobacco abuse. 2. History of marijuana abuse. 3. Severe uncontrolled asthma. DISCHARGE MEDICATIONS: 1. Dulera 200 mcg/5 mcg inhaler 2 puffs b.i.d. 2. Prednisone 40 mg p.o. q.a.m. with meals x5 days. 3. Combivent inhaler 1 to 2 puffs q.4 to 6 hours as needed for shortness of breath. HISTORY OF PRESENT ILLNESS AND HOSPITAL COURSE: The patient is a 34-year-old -[place] male with past medical history of severe uncontrolled asthma, who presented to the emergency department for shortness of breath for the past 2 days. He reports that he has been intubated twice for his asthma exacerbation, hospitalized frequently for this, his last intubation was 06/23/2019. The patient states he is currently uninsured with no PCP and uses albuterol as needed, and has no controller medications for his asthma. He endorsed chest tightness and wheezing and when he first arrived to the emergency department, he was unable to speak more than 1 to 2 words at a time, but reports good relief with DuoNeb. He had no known sick contacts, and states that he has been using marijuana and smoking tobacco frequently. 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 In the emergency department, he was given prednisone, Combivent, magnesium, epinephrine, and admitted to the floor for evaluation and management. Once on the floor, the patient was continued on steroids and DuoNeb scheduled. The patient had improvement in respiratory status, was initially placed on 3 L of oxygen for hypoxia and was able to be weaned down to room air by midday on the first day of hospitalization. The patient had an SASHA with creatinine of 1.43, this did down trend to 1.29. The patient's UDS was positive for THC. The patient was monitored for his respiratory status. Resident team was notified after morning rounds that patient was wanting to leave against medical advice. Came and evaluated the patient. He states that he needed to get home to take care of his 3-year-old child and help take care of his . I discussed at length with the patient the risk of leaving against medical advice, including but not limited to . We discussed the prognosis with the patient that complete workup and treatment had not been completed. The patient voiced understanding of these risks and said that he was willing to accept these risks and return to the emergency department if he had any worsening of his symptoms. It was discussed with the patient that prescriptions for steroids, Dulera, and Combivent would all be sent into his pharmacy. It is recommended he continue these and establish with a primary care physician. Information was given for [facility]. The patient will also benefit from outpatient Pulmonology has he had an eosinophilic component of his asthma and could benefit from immunologics in the future. The patient then left against medical advice. Job ID: [id number] MTDD
== END 2019-12-28 12:00 | disposition left against medical advice (07) | DRG 189 ==
LOC: ERS 01:40 → SURG A 02:51
PROVIDERS: ADMIT Internal Medicine; ATTEND Internal Medicine
DX: J96.01 Acute respiratory failure with hypoxia (principal); J45.901 Unspecified asthma with (acute) exacerbation; N17.9 Acute kidney failure, unspecified; F17.210 Nicotine dependence, cigarettes, uncomplicated; F12.11 Cannabis abuse, in remission
CPT/HCPCS: 36415; 71045; 80053; 80306; 83605; 85025; 94640; 94664; 94760; 96365; 96372; J0171; J3475; J7512; J7611

== ENCOUNTER 2020-01-09 13:45 | Emergency (ER) | payer SELFPAY ==
--- NOTE | 2020-01-09 14:31 | RAD ---
EXAM: CHEST ONE VIEW HISTORY: Left-sided chest pain and shortness of breath COMPARISON: 12/28/2019 FINDINGS: The cardiac silhouette and pulmonary vasculature is within normal limits. Lungs are expanded and cj r. No consolidation or pleural fluid is identified. Perihilar initial prominence is less conspicuous on the current study. The osseous structures are intact. IMPRESSION: No acute cardiopulmonary process.
[2020-01-09] MEDS ORDERED: Ketorolac Tromethamine 30 MG/ML VIAL ONE (14:39)
[2020-01-09] MEDS ORDERED: predniSONE 20 MG TAB ONE (14:44)
== END 2020-01-09 15:28 | disposition home or self-care (01) ==
LOC: ERS 13:45
DX: J45.901 Unspecified asthma with (acute) exacerbation (principal); F17.210 Nicotine dependence, cigarettes, uncomplicated; Z79.51 Long term (current) use of inhaled steroids
CPT/HCPCS: 71045; 94640; 96372; J1885; J7512; J7620

== ENCOUNTER 2020-01-14 15:54 | Emergency (ER) | payer SELFPAY ==
--- NOTE | 2020-01-14 16:35 | RAD ---
RADIOGRAPH CHEST 1 VIEW: DATE: 01/14/2020 HISTORY: 34-year-old male with cough and chest pain FINDINGS: The visualized lung small are clear. The cardiomediastinal silhouette and hilar shadows are normal. The lateral costophrenic angles are sharp. The osseous structures appear normal. There is no pneumothorax. IMPRESSION: Negative.
[2020-01-14] MEDS ORDERED: Ketorolac Tromethamine 30 MG/ML VIAL ONE (16:48)
== END 2020-01-14 17:21 | disposition home or self-care (01) ==
LOC: ERS 15:54
DX: J45.901 Unspecified asthma with (acute) exacerbation (principal); M94.0 Chondrocostal junction syndrome [Tietze]; F17.210 Nicotine dependence, cigarettes, uncomplicated
CPT/HCPCS: 71045; 96372; J1885

== ENCOUNTER 2021-05-31 03:19 | Observation (INO) | payer SELFPAY ==
[2021-05-31] MEDS ORDERED: Albuterol Sulfate 1.25 MG/3 ML NEB ONE (03:32)
[2021-05-31] MEDS ORDERED: Sodium Chloride For Inhalation 0.9% 3 ML NEB ONE (03:33)
[2021-05-31 04:13] LABS: Hemoglobin 14.1 g/dL (14.0-18.0); Mean Corpuscular HGB CONC 33.2 g/dL (32.0-36.0); Mean Corpuscular Hemoglobin 31.9 pg (27.0-31.0); Mean Corpuscular Volume 96.3 fL (78.0-98.0); Mean Platelet Volume 8.1 fL (7.4-10.4); Platelet Count 265 thou/uL (130-400); RBC Distribution Width 11.9 % (11.5-14.5); Red Blood Cell (RBC) Count 4.41 mill/uL (4.70-6.10); White Blood Cell (WBC) Count 7.7 thou/uL (4.8-10.8)
[2021-05-31 04:28] LABS: Eosinophils 14 % (0-10); Lymphocytes 40 % (21-51); MDiff Complete? YES; Monocytes 11 % (0-10); Neutrophil 33 % (42-75); Platelet Morphology Comment Appears Adequate; RBC Morphology Normal; Reactive Lymphocytes 2 % (0-10)
[2021-05-31 04:34] LABS: ALT (SGPT) 16 U/L (8-55); AST (SGOT) 20 U/L (5-34); Albumin 3.7 g/dL (3.5-5.0); Alkaline Phosphatase 107 U/L (40-110); Anion Gap 12 mmol/L (10-20); BUN (Urea Nitrogen) 12 mg/dL (8.9-20.6); Bilirubin, Total 0.4 mg/dL (0.2-1.2); Calc. Creatinine Clearance 0 mL/min (70-130); Calcium 8.7 mg/dL (7.8-10.44); Carbon Dioxide 25 mmol/L (22-29); Chloride 107 mmol/L (98-107); Globulin 2.7 g/dL (2.4-3.5); Glucose 89 mg/dL (70-105); Potassium 3.6 mmol/L (3.5-5.1); Protein, Total 6.4 g/dL (6.0-8.3); Sodium 140 mmol/L (136-145)
[2021-05-31 06:14] LABS: SARS-CoV-2 NAA Rapid Test Not Detected (NotDetected)
[2021-05-31 07:45] VITALS: BMI 23.8
[2021-05-31] MEDS ORDERED: Acetaminophen 325 MG TAB PO PRN (09:03)
[2021-05-31] MEDS ORDERED: Ondansetron PF 4 MG/2 ML Vial IVP PRN (09:03)
[2021-05-31] MEDS ORDERED: Ondansetron ODT 4 MG TAB PO PRN (09:03)
[2021-05-31] MEDS ORDERED: Docusate 100 MG CAP PO PRN (09:08)
[2021-05-31] MEDS ORDERED: Benzonatate 100 MG CAP PO PRN (09:09)
[2021-05-31] MEDS ORDERED: Pantoprazole 40 MG GRANULES PACKET PO SCH (09:15)
[2021-05-31] MEDS: Pantoprazole 40 MG GRANULES PACKET PO SCH ×2 (09:54→09:55)
[2021-05-31] MEDS: Albuterol 200 PUFF (6.7GM INHALER) INH SCH ×8 (09:54→23:37)
[2021-05-31] MEDS: Nicotine 14 MG PATCH TD SCH (09:55)
[2021-05-31] MEDS: Sodium Chloride 0.9% 1,000 ML IV SCH ×2 (12:20→20:49)
[2021-05-31] MEDS: methylPREDNISolone Sod Succ/PF 125 MG/2 ML VIAL IVP SCH ×3 (12:20→23:37)
[2021-06-01] MEDS: Albuterol 200 PUFF (6.7GM INHALER) INH SCH ×7 (01:43→14:54)
[2021-06-01 04:36] VITALS: TEMP 97.9
[2021-06-01] MEDS: methylPREDNISolone Sod Succ/PF 125 MG/2 ML VIAL IVP SCH ×2 (05:27→11:41)
[2021-06-01 07:53] VITALS: BP 106/53
[2021-06-01 07:55] LABS: Anion Gap 13 mmol/L (10-20); BUN (Urea Nitrogen) 13 mg/dL (8.9-20.6); Calc. Creatinine Clearance 77 mL/min (70-130); Calcium 9.4 mg/dL (7.8-10.44); Carbon Dioxide 18 mmol/L (22-29); Chloride 111 mmol/L (98-107); Glucose 124 mg/dL (70-105); Potassium 4.8 mmol/L (3.5-5.1); Sodium 137 mmol/L (136-145)
[2021-06-01] MEDS: Nicotine 14 MG PATCH TD SCH (08:14)
[2021-06-01] MEDS: Pantoprazole 40 MG GRANULES PACKET PO SCH (08:14)
[2021-06-01] MEDS: Sodium Chloride 0.9% 1,000 ML IV SCH (08:14)
[2021-06-01 08:15] LABS: Band 3 % (5-11); Lymphocytes 14 % (21-51); MDiff Complete? YES; Mean Corpuscular HGB CONC 33.3 g/dL (32.0-36.0); Mean Corpuscular Hemoglobin 32.1 pg (27.0-31.0); Mean Corpuscular Volume 96.4 fL (78.0-98.0); Mean Platelet Volume 8.9 fL (7.4-10.4); Neutrophil 83 % (42-75); Platelet Count 271 thou/uL (130-400); Red Blood Cell (RBC) Count 4.37 mill/uL (4.70-6.10)
== END 2021-06-01 17:25 | disposition home or self-care (01) ==
LOC: ERS 03:19 → SUATTDRO 03:19 → T4-B 05:10
PROVIDERS: ADMIT Internal Medicine; ATTEND Internal Medicine
DX: J45.21 Mild intermittent asthma with (acute) exacerbation (principal); J96.01 Acute respiratory failure with hypoxia; N17.9 Acute kidney failure, unspecified; F17.210 Nicotine dependence, cigarettes, uncomplicated; F17.290 Nicotine dependence, other tobacco product, uncomplicated; F12.11 Cannabis abuse, in remission; Z91.14 Patient's other noncompliance with medication regimen; Z91.19 Patient's noncompliance with other medical treatment and regimen; Z79.899 Other long term (current) drug therapy; Z91.018 Allergy to other foods; Z20.822 Contact with and (suspected) exposure to COVID-19
CPT/HCPCS: 36415; 71045; 80048; 80053; 85025; 93005; 94640; 94760; 94799; 96374; 96376; G0378; J2930; J7050; J7620; U0002

== ENCOUNTER 2022-04-11 04:05 | Inpatient (IN) | payer OTHER, SELFPAY ==
[2022-04-11] MEDS ORDERED: Propofol 1,000 MG/100 ML VIAL IV ONE (04:15)
[2022-04-11] MEDS ORDERED: Albuterol Sulfate 2.5 mg/3 ml Neb ONE (04:25)
[2022-04-11 04:29] LABS: Hemoglobin 15.1 g/dL (14.0-18.0); Mean Corpuscular HGB CONC 31.3 g/dL (32.0-36.0); Mean Corpuscular Hemoglobin 32.4 pg (27.0-31.0); Mean Platelet Volume 8.4 fL (7.4-10.4); Platelet Count 304 thou/uL (130-400); RBC Distribution Width 11.9 % (11.5-14.5); Red Blood Cell (RBC) Count 4.66 mill/uL (4.70-6.10); White Blood Cell (WBC) Count 15.9 thou/uL (4.8-10.8)
[2022-04-11] MEDS ORDERED: Succinylcholine 200 MG/10 ml SYRINGE FS ONE (04:41)
[2022-04-11 04:47] LABS: ALT (SGPT) 33 U/L (8-55); AST (SGOT) 58 U/L (5-34); Albumin 4.4 g/dL (3.5-5.0); Alkaline Phosphatase 89 U/L (40-110); Anion Gap 34 mmol/L (10-20); BUN (Urea Nitrogen) 8 mg/dL (8.9-20.6); Bilirubin, Total 0.8 mg/dL (0.2-1.2); Calc. Creatinine Clearance 0 mL/min (70-130); Calcium 10.8 mg/dL (7.8-10.44); Carbon Dioxide 12 mmol/L (22-29); Chloride 102 mmol/L (98-107); Estimated GFR 53; Globulin 3.4 g/dL (2.4-3.5); Glucose 243 mg/dL (70-105); Magnesium 2.7 mg/dL (1.6-2.6); Potassium 4.7 mmol/L (3.5-5.1); Protein, Total 7.8 g/dL (6.0-8.3); Sodium 143 mmol/L (136-145)
[2022-04-11 04:55] LABS: Band 1 % (5-11); Eosinophils 6 % (0-10); Lymphocytes 46 % (21-51); MDiff Complete? YES; Monocytes 9 % (0-10); Neutrophil 38 % (42-75)
[2022-04-11] MEDS ORDERED: Ketamine 50 MG/ML (10ML VIAL) ONE (05:14)
[2022-04-11 05:29] LABS: Actual Bicarbonate (HCO3a) 15.1 mEq/L (22-28); Analyzer IN Cardio ER; Base Excess (BEa) -15.1 mEq/L (-2.0 to +3.0); CO2 Tension 53.4 mmHg (35.0-45.0); Calcium, Ionized (arterial) 1.19 mmol/L (1.12-1.30); Carboxyhemoglobin (COHb) 0.3 gm% (0.0-3.0); Hemoglobin (Hb) 13.5 g/dL (14.0-18.0); Potassium - ABG Lab 4.37 mmol/L (3.70-5.30)
[2022-04-11 05:37] LABS: pH, Arterial 7.07 (7.35-7.45)
[2022-04-11] MEDS ORDERED: NOREPINEPHRINE 8 MG/250 ML-D5W 250 ML ONE (05:37)
[2022-04-11 05:38] LABS: Puncture Site RBA
[2022-04-11] MEDS ORDERED: Cefepime 2 GM VIAL ONE (06:22)
[2022-04-11] MEDS ORDERED: Sodium Bicarb 50 MEQ/50 ML Abboject 8.4% SYRINGE ONE (06:35)
[2022-04-11] MEDS ORDERED: Vancomycin 1 GM/200 ML BAG ONE (06:54)
[2022-04-11 07:01] LABS: Bilirubin Negative (Negative); Blood, Urine 2+ (Negative); Clarity Turbid (Clear); Glucose, Urine (Dipstick) Normal (Negative); Ketone, Urine Negative (Negative); Leukocyte 500 Leu/uL (Negative); Nitrite Negative (Negative); Protein, Urine (Dipstick) 50 mg/dL (Neg-Trace); Specific Gravity, Urine 1.017 (1.002-1.036); Squamous Epithelial 0-3 HPF (0-3); Urobilinogen Normal mg/dL (Less than 2); WBC/HPF Greater than 50 HPF (0-3); pH, Urine 5.5 (5.0-9.0)
[2022-04-11 07:07] LABS: Bacteria/HPF 1+ HPF (None Seen)
[2022-04-11 07:08] LABS: Sperm/HPF Rare HPF (None Seen)
[2022-04-11 07:09] LABS: Amphetamine Not Detected (NotDetected); Barbiturates Screen Not Detected (NotDetected); Benzodiazepine Screen Not Detected (NotDetected); Cocaine Metabolite Screen Not Detected (NotDetected); Methadone Not Detected (NotDetected); Methamphetamine Not Detected (NotDetected); Opiate Screen Not Detected (NotDetected); Oxycodone Screen Not Detected (NotDetected); Phencyclidine (PCP) Not Detected (NotDetected); THC/Cannabinoid Screen Not Detected (NotDetected); Tricyclic Screen Not Detected (NotDetected)
[2022-04-11 07:38] LABS: SARS-CoV-2 NAA Rapid Test Not Detected (NotDetected)
[2022-04-11] MEDS ORDERED: Lorazepam (BATCHED) 2 MG/ML SYR ONE (07:38)
[2022-04-11] MEDS ORDERED: Ventilator Sedation Protocol 1 EACH FS SCH (08:30)
[2022-04-11] MEDS ORDERED: Morphine 4 MG/ML VIAL SLOW IVP PRN (08:45)
[2022-04-11] MEDS ORDERED: Propofol BOLUS 1,000 MG/100 ML VIAL IV PRN (08:45)
[2022-04-11] MEDS ORDERED: Fentanyl BOLUS 250 ML IVPB PRN (08:45)
[2022-04-11] MEDS ORDERED: Fentanyl CADD 100 ML IV SCH (08:45)
[2022-04-11] MEDS ORDERED: Lactated Ringer's 1,000 ML IV SCH (08:45)
[2022-04-11] MEDS: Enoxaparin Sodium 40 MG/0.4 ML SYRINGE SC SCH (09:01)
[2022-04-11] MEDS: Famotidine/PF 20 mg/2ml Vial SLOW IVP SCH ×2 (09:01→20:22)
[2022-04-11] MEDS: Midazolam HCl 2 mg/2 ml Vial SLOW IVP PRN ×3 (09:02→22:03)
[2022-04-11] MEDS: Sodium Chloride 0.45% 1,000 ML IV SCH ×3 (09:05→16:48)
[2022-04-11] MEDS ORDERED: Iopamidol-370 76% 500 ML 1 ML ONE (09:08)
[2022-04-11] MEDS ORDERED: VANC IVPB PRN (09:09)
[2022-04-11] MEDS ORDERED: NOREPINEPHRINE 8 MG/250 ML-D5W 250 ML IVPB SCH (09:15)
[2022-04-11 09:47] LABS: Actual Bicarbonate (HCO3a) 19.6 mEq/L (22-28); Base Excess (BEa) -5.7 mEq/L (-2.0 to +3.0); CO2 Tension 37.6 mmHg (35.0-45.0); Calcium, Ionized (arterial) 1.09 mmol/L (1.12-1.30); Hemoglobin (Hb) 13.8 g/dL (14.0-18.0); O2 Tension (PaO2), arterial 99.4 mmHg (80.0-100.0); Potassium - ABG Lab 3.66 mmol/L (3.70-5.30); pH, Arterial 7.33 (7.35-7.45)
[2022-04-11 09:51] LABS: Puncture Site RBA
[2022-04-11] MEDS ORDERED: Fentanyl CADD 100 ML ONE (09:56)
[2022-04-11] MEDS ORDERED: Dextrose 5% in Water 1,000 ML IV PRN (10:18)
[2022-04-11] MEDS ORDERED: Insulin Regular 300 UNITS/3 ML VIAL SC PRN (10:18)
[2022-04-11] MEDS ORDERED: Dextrose 50% Abboject 50 ML SYRINGE SLOW IVP PRN (10:18)
[2022-04-11] MEDS ORDERED: HumaLOG 300 UNITS/3 ML VIAL SC PRN (10:18)
[2022-04-11] MEDS: Nicotine 14 MG PATCH TD SCH (10:22)
[2022-04-11 10:24] LABS: Lactic Acid 5.6 mmol/L (0.5-2.2)
[2022-04-11] MEDS: Propofol 1,000 MG/100 ML VIAL IV PRN (10:55)
[2022-04-11] MEDS: methylPREDNISolone Sod Succ 40 MG VIAL IVP SCH ×3 (10:55→23:43)
[2022-04-11] MEDS: Cefepime 1 GM in Sodium Chloride 0.9% 100 ML IVPB SCH (20:21)
[2022-04-12] MEDS: Propofol 1,000 MG/100 ML VIAL IV PRN (03:51)
[2022-04-12 04:13] LABS: Hemoglobin A1c 5.7 % (4.0-6.0)
[2022-04-12 04:23] LABS: #Basophils 0.1 thou/uL (0.0-0.2); #Lymphocytes 1.1 thou/uL (1.20-3.40); #Monocytes 0.6 thou/uL (0.11-0.59); #Neutrophils 14.3 thou/uL (1.40-6.50); %Basophils 0.6 % (0.0-1.0); %Eosinophils 0.1 % (0.0-10.0); %Monocytes 3.7 % (0.0-10.0); %Neutrophils 88.6 % (42.0-75.0); Hemoglobin 13.3 g/dL (14.0-18.0); Mean Corpuscular HGB CONC 32.7 g/dL (32.0-36.0); Mean Corpuscular Hemoglobin 32.3 pg (27.0-31.0); Mean Corpuscular Volume 98.9 fL (78.0-98.0); Mean Platelet Volume 8.2 fL (7.4-10.4); Platelet Count 264 thou/uL (130-400); RBC Distribution Width 12.1 % (11.5-14.5); Red Blood Cell (RBC) Count 4.11 mill/uL (4.70-6.10); White Blood Cell (WBC) Count 16.2 thou/uL (4.8-10.8)
[2022-04-12 04:40] LABS: ALT (SGPT) 29 U/L (8-55); AST (SGOT) 48 U/L (5-34); Albumin 3.2 g/dL (3.5-5.0); Alkaline Phosphatase 62 U/L (40-110); Anion Gap 15 mmol/L (10-20); BUN (Urea Nitrogen) 11 mg/dL (8.9-20.6); Bilirubin, Total 0.8 mg/dL (0.2-1.2); Calc. Creatinine Clearance 73 mL/min (70-130); Calcium 8.6 mg/dL (7.8-10.44); Carbon Dioxide 21 mmol/L (22-29); Chloride 109 mmol/L (98-107); Estimated GFR 87; Globulin 2.5 g/dL (2.4-3.5); Glucose 115 mg/dL (70-105); Potassium 4.5 mmol/L (3.5-5.1); Protein, Total 5.7 g/dL (6.0-8.3); Sodium 140 mmol/L (136-145)
[2022-04-12] MEDS: methylPREDNISolone Sod Succ 40 MG VIAL IVP SCH ×3 (05:46→21:12)
[2022-04-12 07:07] LABS: Actual Bicarbonate (HCO3a) 22.9 mEq/L (22-28); Base Excess (BEa) 0.6 mEq/L (-2.0 to +3.0); CO2 Tension 29.7 mmHg (35.0-45.0); Calcium, Ionized (arterial) 1.19 mmol/L (1.12-1.30); Carboxyhemoglobin (COHb) 0.3 gm% (0.0-3.0)
[2022-04-12 07:08] LABS: ALV-art Gradient 110.425 mmHg (0-20); Puncture Site RRA
[2022-04-12] MEDS ORDERED: Vancomycin 1 GM in Premix Bag 1 BAG IVPB SCH (08:00)
[2022-04-12] MEDS: Famotidine/PF 20 mg/2ml Vial SLOW IVP SCH ×2 (08:17→21:13)
[2022-04-12] MEDS: Cefepime 1 GM in Sodium Chloride 0.9% 100 ML IVPB SCH ×2 (08:18→21:22)
[2022-04-12] MEDS: Enoxaparin Sodium 40 MG/0.4 ML SYRINGE SC SCH (08:18)
[2022-04-12] MEDS: Nicotine 14 MG PATCH TD SCH (08:48)
[2022-04-12 10:03] VITALS: BMI 23.0
[2022-04-12] MEDS ORDERED: methylPREDNISolone Sod Succ 40 MG VIAL IVP SCH (14:00)
[2022-04-12] MEDS ORDERED: Albuterol Sulfate 2.5 mg/0.5 ml Neb NEB PRN (14:52)
[2022-04-12] MEDS: Mometasone 200 MCG/Formoterol 5 MCG 120 PUFF INHALER INH SCH (20:04)
[2022-04-12] MEDS: guaiFENesin ER 600 MG TAB PO SCH (21:13)
[2022-04-13] MEDS: methylPREDNISolone Sod Succ 40 MG VIAL IVP SCH (06:40)
[2022-04-13 06:59] LABS: Hemoglobin 12.9 g/dL (14.0-18.0); Mean Corpuscular HGB CONC 32.5 g/dL (32.0-36.0); Mean Corpuscular Hemoglobin 32.2 pg (27.0-31.0); Mean Platelet Volume 8.3 fL (7.4-10.4); Platelet Count 286 thou/uL (130-400); Red Blood Cell (RBC) Count 4.02 mill/uL (4.70-6.10); White Blood Cell (WBC) Count 21.5 thou/uL (4.8-10.8)
[2022-04-13] MEDS: Mometasone 200 MCG/Formoterol 5 MCG 120 PUFF INHALER INH SCH ×2 (07:00→18:10)
[2022-04-13 07:17] LABS: Anion Gap 12 mmol/L (10-20); BUN (Urea Nitrogen) 21 mg/dL (8.9-20.6); Calc. Creatinine Clearance 81 mL/min (70-130); Calcium 9.1 mg/dL (7.8-10.44); Carbon Dioxide 27 mmol/L (22-29); Chloride 105 mmol/L (98-107); Estimated GFR 94; Glucose 108 mg/dL (70-105); Potassium 4.1 mmol/L (3.5-5.1); Sodium 140 mmol/L (136-145)
[2022-04-13] MEDS: Enoxaparin Sodium 40 MG/0.4 ML SYRINGE SC SCH (08:39)
[2022-04-13] MEDS: guaiFENesin ER 600 MG TAB PO SCH ×2 (08:39→19:58)
[2022-04-13] MEDS: Cefepime 1 GM in Sodium Chloride 0.9% 100 ML IVPB SCH (08:40)
[2022-04-13] MEDS: Famotidine/PF 20 mg/2ml Vial SLOW IVP SCH ×2 (08:40→20:00)
[2022-04-13] MEDS: Nicotine 14 MG PATCH TD SCH (08:40)
[2022-04-13] MEDS ORDERED: Cyclobenzaprine 10 MG TAB PO PRN (10:23)
[2022-04-13] MEDS ORDERED: Ketorolac Tromethamine 30 MG/ML VIAL IVP SCH (10:30)
[2022-04-13] MEDS ORDERED: Cyclobenzaprine 10 MG TAB PO SCH (10:30)
[2022-04-13] MEDS: metroNIDAZOLE 500 MG TAB PO SCH ×2 (14:20→19:58)
[2022-04-13] MEDS ORDERED: Polyethylene Glycol 3350 17 GM Packet PO PRN (15:13)
[2022-04-13] MEDS: Senokot S 8.6-50 MG TAB PO SCH (19:59)
[2022-04-14] MEDS: Mometasone 200 MCG/Formoterol 5 MCG 120 PUFF INHALER INH SCH (06:43)
[2022-04-14] MEDS ORDERED: predniSONE 20 MG TAB PO SCH (08:00)
[2022-04-14 08:08] VITALS: BP 106/63; TEMP 98.4
[2022-04-14 08:36] LABS: #Eosinphils 0.3 thou/uL (0.0-0.7); #Lymphocytes 3.7 thou/uL (1.20-3.40); #Monocytes 0.9 thou/uL (0.11-0.59); #Neutrophils 6.9 thou/uL (1.40-6.50); %Basophils 0.2 % (0.0-1.0); %Eosinophils 2.1 % (0.0-10.0); %Lymphocytes 31.6 % (21.0-51.0); %Neutrophils 58.1 % (42.0-75.0); Hemoglobin 13.1 g/dL (14.0-18.0); Mean Corpuscular HGB CONC 31.5 g/dL (32.0-36.0); Mean Corpuscular Hemoglobin 31.2 pg (27.0-31.0); Mean Corpuscular Volume 99.2 fL (78.0-98.0); Platelet Count 290 thou/uL (130-400); RBC Distribution Width 12.1 % (11.5-14.5); White Blood Cell (WBC) Count 11.8 thou/uL (4.8-10.8)
[2022-04-14] MEDS: Senokot S 8.6-50 MG TAB PO SCH (09:11)
[2022-04-14] MEDS: guaiFENesin ER 600 MG TAB PO SCH (09:12)
[2022-04-14] MEDS: metroNIDAZOLE 500 MG TAB PO SCH (09:13)
[2022-04-14] MEDS: Famotidine/PF 20 mg/2ml Vial SLOW IVP SCH (09:14)
[2022-04-14] MEDS: Enoxaparin Sodium 40 MG/0.4 ML SYRINGE SC SCH (09:14)
== END 2022-04-14 10:50 | DRG 208 ==
LOC: ERS 04:05 → EEVIPCON 06:46 → CCU 06:46 → SURG B 04-12 15:32
PROVIDERS: ADMIT Family Medicine; ATTEND Family Medicine
PROC: 5A1945Z Respiratory Ventilation, 24-96 Consecutive Hours (ICD-10-PCS; principal; 2022-04-11)
PROC: 3E03329 Introduction of Other Anti-infective into Peripheral Vein, Percutaneous Approach (ICD-10-PCS; 2022-04-11)
PROC: 3E033XZ Introduction of Vasopressor into Peripheral Vein, Percutaneous Approach (ICD-10-PCS; 2022-04-11)
PROC: 0BH17EZ Insertion of Endotracheal Airway into Trachea, Via Natural or Artificial Opening (ICD-10-PCS; 2022-04-11)
PROC: 0D9670Z Drainage of Stomach with Drainage Device, Via Natural or Artificial Opening (ICD-10-PCS; 2022-04-11)
DX: J45.901 Unspecified asthma with (acute) exacerbation (principal); J96.01 Acute respiratory failure with hypoxia; J96.02 Acute respiratory failure with hypercapnia; A41.9 Sepsis, unspecified organism; R65.21 Severe sepsis with septic shock; N39.0 Urinary tract infection, site not specified; E87.4 Mixed disorder of acid-base balance; N17.9 Acute kidney failure, unspecified; Z20.822 Contact with and (suspected) exposure to COVID-19; J45.902 Unspecified asthma with status asthmaticus; F17.210 Nicotine dependence, cigarettes, uncomplicated; K52.9 Noninfective gastroenteritis and colitis, unspecified; F12.10 Cannabis abuse, uncomplicated; F17.290 Nicotine dependence, other tobacco product, uncomplicated; R73.9 Hyperglycemia, unspecified; E86.9 Volume depletion, unspecified; Z91.018 Allergy to other foods; Z78.1 Physical restraint status; Z79.52 Long term (current) use of systemic steroids; Z79.899 Other long term (current) drug therapy
CPT/HCPCS: 31500; 36415; 36416; 36600; 51702; 71045; 74177; 80048; 80053; 80179; 80306; 80307; 81003; 81015; 82805; 83036; 83605; 83735; 83880; 83930; 84145; 84443; 84484; 85025; 85027; 87040; 87081; 87086; 93005; 94002; 94003; 94640; 94644; 94664; 96374; 96375; J0692; J1650; J1885; J2060; J2250; J2704; J2920; J3010; J3370; J3490; J7512; J7611; J7620; Q9967; S0028; U0002